=== PATIENT | male | born 1955 | race Caucasian/White ===

== ENCOUNTER 2019-02-27 10:38 | Day surgery (SDC) | payer OTHER ==
[2019-02-27] VITALS (15 sets, daily range): BP systolic 106–160; BP diastolic 73–87; PULSE 77–90; RESP 13–20; Ht 170.2 cm; Wt 77.5 kg
[~2019-02-27] VITALS: Ht 170.2 cm; Wt 77.5 kg
[~2019-02-27 10:38] MED LIST: CEFAZOLIN 2 GM/50 ML (PMX) 50 ML IVPB SCH
[2019-02-27] MEDS ORDERED: GLIP10TA14 PO (11:03)
[2019-02-27] MEDS ORDERED: LOSA50TA14 PO (11:03)
[2019-02-27] MEDS ORDERED: REPA1TAB5 PO (11:03)
[2019-02-27] MEDS ORDERED: ATOR10TA65 PO (11:03)
[2019-02-27] MEDS ORDERED: SOD CHLORIDE 0.9% 1,000 ML IV SCH ×2 (11:30→13:30)
[2019-02-27] MEDS ORDERED: BUPIVACAINE 0.5% (SDV) 30 ML INJ ONE (11:58)
--- NOTE | 2019-02-27 12:21 | PREAC ---
Date/Time of Note Date/Time of Note DATE: 02/27/19 TIME: 12:20 Anesthesia Eval and Record Evaluation Time Pre-Procedure Interview DATE: 02/27/19 TIME: 12:20 Age 64 Sex male NPO: 8 hrs Preoperative diagnosis phimosis Planned procedure circumcision Past Medical History Past Medical History: Includes Cardio: HTN, Dyslipidemia Endo: Diabetes Neuro: Other (glaucoma) Psych: Depression, Anxiety Surgery & Anesthesia Issues No known issue Meds Anticoagulation: No Beta Augustus within 24 hr: No Reason Beta Augustus not given: Pt. not on B-Augustus Reported Medications Atorvastatin Calcium (Atorvastatin Calcium) 10 Mg Tablet, 10 MG PO QHS, #30 TAB 02/27/19 Losartan Potassium* (Losartan Potassium*) 50 Mg Tablet, 50 MG PO DAILY, TAB 02/27/19 Glipizide* (Glipizide*) 10 Mg Tablet, 10 MG PO DAILY, TAB 02/27/19 Repaglinide* (Repaglinide*) 1 Mg Tablet, 1 MG PO AC MEALS, TAB 02/27/19 Current Medications Cefazolin Sodium/ Dextrose 50 ml @ 100 mls/hr PREOP IVPB ; Start 02/27/19 at 08:00; Stop 02/27/19 at 19:00 Sodium Chloride 1,000 ml @ 25 mls/hr Q24H IV ; Start 02/27/19 at 11:30 Meds reviewed: Yes Allergies Coded Allergies: No Known Allergy (Unverified , 02/27/19) Allergies Reviewed: Yes Labs/Studies Labs Reviewed: Reviewed by anesthesiologist test: N/A Studies: ECG, CXR Pre-procedure Exam Last vitals Vital Signs Date Temp Pulse Resp B/P (MAP) Pulse Ox O2 O2 Flow FiO2 Time Delivery Rate 02/27/19 97.9 89 16 160/87 100 Room Air 11:38 (111) Airway: Adequate mouth opening, Adequate thyromental dist Mallampati: Mallampati II Teeth: Normal Lung: Normal Heart: Normal ASA Physical Status ASA physical status: 3 Emergency: None Planned Anesthetic General/MAC: LMA Planned Pain Management Parenteral pain med, Local by surgeon Pre-operative Attestations Prior to commencing anesthesia and surgery, the patient was re-evaluated, there was verification of: *The patient's identity *The results of appropriate recent lab work and preoperative vital signs *The above evaluation not changing prior to induction *Anesthetic plan, risk benefits, alternative and complications discussed with patient/family; questions answered; patient/family understands, accepts and wishes to proceed. BONILLA KNIGHT Feb 27, 2019 12:21
[2019-02-27] MEDS ORDERED: LIDOCAINE 2% (SDV) 5 ML INJ ONE (12:25)
[2019-02-27] MEDS ORDERED: PROPOFOL 20 ML ONE (12:25)
[2019-02-27] MEDS ORDERED: FENTAnyl 50 MCG/ML VIAL ONE (12:25)
[2019-02-27] MEDS ORDERED: MIDAZOLAM 1 MG/ML 2 ML INJ ONE (12:25)
[2019-02-27] MEDS ORDERED: CEFAZOLIN 1 GM INJ ONE (12:25)
--- NOTE | 2019-02-27 12:29 | HPN ---
Date/Time of Note Date/Time of Note DATE: 02/27/19 TIME: 12:28 Interval H&P Admission Note Pt. seen H&P reviewed: No system changes SILVA OBANDO MD Feb 27, 2019 12:29
[2019-02-27] MEDS ORDERED: FAMOTIDINE 20 MG INJ ONE (12:46)
[2019-02-27] MEDS ORDERED: METOCLOPRAMIDE 10 MG INJ ONE (12:46)
[2019-02-27] MEDS ORDERED: ONDANSETRON 4 MG INJ ONE (12:46)
[2019-02-27] MEDS ORDERED: MEPERIDINE 25 MG INJ IV PRN (13:30)
[2019-02-27] MEDS ORDERED: HYDROmorphONE 1 MG/5 ML IV SYRINGE IV PRN ×3 (13:30)
[2019-02-27] MEDS ORDERED: LABETALOL HCL 20MG INJ IV PRN (13:30)
[2019-02-27] MEDS ORDERED: OXYCODONE/ACETAMINOPHEN (5/325) TAB PO PRN ×2 (13:30)
[2019-02-27] MEDS ORDERED: ONDANSETRON 4 MG INJ IV PRN (13:30)
--- NOTE | 2019-02-27 13:44 | OPR ---
Date/Time of Note Date/Time of Note DATE: 02/27/19 TIME: 13:41 Operative Report Procedure Date: Feb 27, 2019 Preoperative Diagnosis Phimosis and balanitis Postoperative Diagnosis Same Operation/Procedure Performed Circumcision Surgeon see signature line [employer] services technician Chanda Anesthesia Type: general Anesthesiologist: BONILLA KNIGHT Estimated Blood Loss: minimal Transfusion none Specimen Foreskin Grafts/Implants none Complications none Pt Condition Post Procedure: stable Disposition: PACU Indications Balanitis and phimosis Procedure Description The patient was brought to the operating room. Time out was done. The patient was identified by his name, date and the procedure. Patient was given 2 g of Ancef IV at the start of the procedure. The genital area was then prepped and draped in usual sterile manner. A dorsal slit was first done so the foreskin can be retracted. The penis was then painted again with Betadine solution. The foreskin at the level of the verma was marked then incised. The foreskin was then retracted and another incision was made one centimeter proximal to the verma. The skin between the 2 incisions was removed. All the bleeders were electrocoagulated and good hemostasis was obtained. The subcutaneous tissue was approximated with 3-0 Vicryl interrupted sutures at the 9,12, 3 and 6 o'clock position. The incision was then closed with 3-0 Vicryl interrupted sutures. Then the patient was injected with half percent Marcaine around the base of the penis for local anesthesia. The incision was then covered was a Vaseline gauze and a Tammy. Patient was transferred to the recovery room in stable and satisfactory condition. SILVA OBANDO MD Feb 27, 2019 13:44
--- NOTE | 2019-02-27 13:56 | PAC ---
Date/Time of Note Date/Time of Note DATE: 02/27/19 TIME: 13:56 Post-Anesthesia Notes Post-Anesthesia Note Last documented vital signs Vital Signs Date Temp Pulse Resp B/P (MAP) Pulse Ox O2 O2 Flow FiO2 Time Delivery Rate 02/27/19 99.0 13:42 02/27/19 90 17 111/75 99 Mask 8.0 13:35 (87) Activity: WNL Respiratory function: WNL Cardiovascular function: WNL Mental status: Baseline Pain reasonably controlled: Yes Hydration appropriate: Yes Nausea/Vomiting absent: Yes BONILLA KNIGHT Feb 27, 2019 13:56
[2019-02-27] MEDS ORDERED: HYDROCODONE/APAP (5/325) TAB PO PRN (14:00)
== END 2019-02-27 15:40 | disposition home or self-care (01) ==
LOC: SDS 10:38
PROVIDERS: ATTEND Urology
DX: N47.1 Phimosis (principal); N48.1 Balanitis; E11.9 Type 2 diabetes mellitus without complications; I10 Essential (primary) hypertension; E78.5 Hyperlipidemia, unspecified
CPT/HCPCS: 54161; 82962; 88304; J0690; J2250; J2405; J2765; J3010; Z7512; Z7610